=== PATIENT | male | born 1960 | race Caucasian/White ===

== ENCOUNTER 2017-12-28 16:27 | Inpatient (IN) | payer OTHER ==
[2017-12-28] MEDS: SOD CHLORIDE 0.9% 100 ML (16:37)
[2017-12-28] MEDS: IOHEXOL 350MG/ML 50 ML BTL (16:37)
[2017-12-28] MEDS: IOHEXOL 100 ML (16:37)
[2017-12-28] MEDS: ASPIRIN 81 MG TAB PO (16:59)
[2017-12-28] MEDS: ASPIRIN 300 MG SUPP PR (17:00)
[2017-12-28 17:07] LABS: ADD MAN DIFF? NO
[2017-12-28] MEDS: SOD CHLORIDE 0.9% 1,000 ML IV (17:11)
[2017-12-28 17:12] LABS: WHITE BLOOD COUNT 5.4 10^3/ul (4.8-10.8)
[2017-12-28 17:12] LABS: BASOPHILS % 0.4 % (0.0-2.0); EOSINOPHILS % 0.6 % (0.0-7.0); HEMATOCRIT 44.4 % (42.0-52.0); HEMOGLOBIN 15.3 g/dl (14.0-18.0); LYMPHOCYTES % 36.4 % (15.0-51.0); MEAN CORPUSCULAR HEMOGLOBIN 30.9 pg (29.0-33.0); MEAN CORPUSCULAR HGB CONC 34.5 g/dl (32.0-37.0); MEAN CORPUSCULAR VOLUME 89.7 fl (82.0-101.0); MEAN PLATELET VOLUME 10.8 fl (7.4-10.4); MONOCYTE # 0.6 10^3/ul (0.3-0.9); MONOCYTES % 10.5 % (0.0-11.0); NEUTROPHIL # 2.8 10^3/ul (1.6-7.5); NEUTROPHILS % 51.4 % (39.0-77.0); PLATELET COUNT 225 10^3/UL (140-415); RED BLOOD COUNT 4.95 10^6/ul (4.70-6.10); RED CELL DISTRIBUTION WIDTH 13.3 % (11.5-14.5)
[2017-12-28 17:35] LABS: HEMOGLOBIN A1C 5.6 % (0-5.9)
[2017-12-28 17:37] LABS: INR 1.07; PT RATIO 1.1
[2017-12-28 17:38] LABS: ALANINE AMINOTRANSFERASE 28 IU/L (13-69); ALBUMIN/GLOBULIN RATIO 1.11; ALKALINE PHOSPHATASE 67 IU/L (42-121); ANION GAP 21 (8-16); ASPARTATE AMINO TRANSFERASE 15 IU/L (15-46); BILIRUBIN,INDIRECT 0.4 mg/dl (0-1.1); BILIRUBIN,TOTAL 0.4 mg/dl (0.2-1.3); BLOOD UREA NITROGEN 21 mg/dl (7-20); CALCIUM 8.8 mg/dl (8.4-10.2); CARBON DIOXIDE 25 mmol/L (21-31); CHLORIDE 99 mmol/L (97-110); CHOL/HDL RATIO 4.3 RATIO; CHOLESTEROL 197 mg/dl (100-200); CREATININE 1.46 mg/dl (0.61-1.24); GLUCOSE 95 mg/dl (70-220); HDL CHOLESTEROL 45 mg/dl (28-71); LDL CHOLESTEROL,CALCULATED 119 mg/dl; PARTIAL THROMBOPLASTIN TIME 28.4 Sec (25.0-35.0); POTASSIUM 3.8 mmol/L (3.5-5.1); SODIUM 141 mmol/L (135-144); TOTAL PROTEIN 7.6 g/dl (6.1-8.1); TRIGLYCERIDES 165 mg/dl (0-149)
[2017-12-28 17:49] LABS: TROPONIN-I 0.013 ng/ml (0.000-0.120)
[2017-12-28] MEDS ORDERED: BISACODYL 10 MG SUPP PR (23:00)
[2017-12-28] MEDS ORDERED: DOCUSATE SODIUM 100 MG CAP PO (23:00)
[2017-12-28] MEDS ORDERED: ONDANSETRON 4 MG INJ IV (23:00)
[2017-12-28] MEDS ORDERED: ACETAMINOPHEN 325 MG TAB PO (23:00)
[2017-12-28] MEDS ORDERED: morphine 2 MG INJ IV (23:00)
[2017-12-28] MEDS ORDERED: MAGNESIUM HYDROXIDE 30ML CUP PO (23:00)
[2017-12-28] MEDS ORDERED: NACL 0.9% 3 ML SYG IV (23:00)
[2017-12-29] MEDS: ASPIRIN (EC) 81 MG TAB PO (08:47)
[2017-12-29] MEDS: NIFEdipine (XL) 30 MG TAB PO (08:47)
[2017-12-29] MEDS: LOSARTAN 50 MG TAB PO (08:47)
[2017-12-29] MEDS: FAMOTIDINE 20 MG TAB PO ×2 (08:47→20:27)
[2017-12-29] MEDS: CLOPIDOGREL 75 MG TAB PO (08:47)
[2017-12-29 08:58] LABS: ADD MAN DIFF? NO
[2017-12-29 09:09] LABS: BASOPHILS % 0.5 % (0.0-2.0); HEMATOCRIT 47.2 % (42.0-52.0); HEMOGLOBIN 16.2 g/dl (14.0-18.0); LYMPHOCYTES # 1.5 10^3/ul (0.8-2.9); MEAN CORPUSCULAR HEMOGLOBIN 30.9 pg (29.0-33.0); MEAN CORPUSCULAR HGB CONC 34.3 g/dl (32.0-37.0); MEAN CORPUSCULAR VOLUME 89.9 fl (82.0-101.0); MEAN PLATELET VOLUME 10.5 fl (7.4-10.4); MONOCYTE # 0.5 10^3/ul (0.3-0.9); MONOCYTES % 11.4 % (0.0-11.0); NEUTROPHIL # 1.9 10^3/ul (1.6-7.5); NEUTROPHILS % 48.8 % (39.0-77.0); PLATELET COUNT 219 10^3/UL (140-415); RED BLOOD COUNT 5.25 10^6/ul (4.70-6.10); RED CELL DISTRIBUTION WIDTH 13.4 % (11.5-14.5)
[2017-12-29 09:16] LABS: HEMOGLOBIN A1C 5.6 % (0-5.9)
[2017-12-29 09:36] LABS: ALANINE AMINOTRANSFERASE 30 IU/L (13-69); ALBUMIN 4.1 g/dl (3.3-4.9); ALKALINE PHOSPHATASE 85 IU/L (42-121); ANION GAP 17 (8-16); ASPARTATE AMINO TRANSFERASE 17 IU/L (15-46); BILIRUBIN,INDIRECT 0.7 mg/dl (0-1.1); BILIRUBIN,TOTAL 0.7 mg/dl (0.2-1.3); BLOOD UREA NITROGEN 19 mg/dl (7-20); CALCIUM 8.9 mg/dl (8.4-10.2); CARBON DIOXIDE 24 mmol/L (21-31); CHLORIDE 108 mmol/L (97-110); CHOL/HDL RATIO 4.6 RATIO; CHOLESTEROL 204 mg/dl (100-200); CREATININE 1.29 mg/dl (0.61-1.24); GLUCOSE 81 mg/dl (70-220); HDL CHOLESTEROL 44 mg/dl (28-71); LDL CHOLESTEROL,CALCULATED 136 mg/dl; MAGNESIUM 2.1 mg/dl (1.7-2.5); POTASSIUM 3.9 mmol/L (3.5-5.1); SODIUM 145 mmol/L (135-144); TOTAL PROTEIN 7.8 g/dl (6.1-8.1); TRIGLYCERIDES 119 mg/dl (0-149)
[2017-12-29] MEDS: ATORVASTATIN 40 MG TAB PO (20:27)
[2017-12-29] MEDS: ATENOLOL 100 MG TAB PO (20:28)
[2017-12-30] MEDS: ASPIRIN (EC) 81 MG TAB PO (08:07)
[2017-12-30] MEDS: LOSARTAN 50 MG TAB PO ×2 (08:07→21:03)
[2017-12-30] MEDS: NIFEdipine (XL) 30 MG TAB PO ×2 (08:07→12:53)
[2017-12-30] MEDS: FAMOTIDINE 20 MG TAB PO ×2 (08:07→21:02)
[2017-12-30] MEDS: CLOPIDOGREL 75 MG TAB PO (08:07)
[2017-12-30 09:32] LABS: ADD UMIC YES; UR ASCORBIC ACID NEGATIVE (NEGATIVE); UR BACTERIA FEW /HPF (NONE SEEN); UR BILIRUBIN (Dip) NEGATIVE (NEGATIVE); UR BLOOD (Dip) NEGATIVE (NEGATIVE); UR CLARITY CLEAR (CLEAR); UR COLOR YELLOW (YELLOW); UR GLUCOSE (Dip) NEGATIVE (NEGATIVE); UR KETONES (Dip) NEGATIVE (NEGATIVE); UR LEUKOCYTE ESTERASE (Dip) NEGATIVE Leu/ul (NEGATIVE); UR MUCUS MANY /HPF (NONE SEEN); UR NITRITE (Dip) NEGATIVE (NEGATIVE); UR RBC 1 /HPF (0-5); UR TOTAL PROTEIN (Dip) 2+ mg/dl (NEGATIVE); UR UROBILINOGEN (Dip) NEGATIVE (NEGATIVE); UR WBC 1 /HPF (0-5)
[2017-12-30 09:59] LABS: AMPHETAMINE/METHAMPHETAMINE NEGATIVE (NEGATIVE); BARBITURATES NEGATIVE (NEGATIVE); BENZODIAZEPINES NEGATIVE (NEGATIVE); CANNABINOIDS NEGATIVE (NEGATIVE); COCAINE NEGATIVE (NEGATIVE); OPIATES NEGATIVE (NEGATIVE)
[2017-12-30] MEDS: HYDROCHLOROTHIAZIDE 25 MG TAB PO (12:20)
[2017-12-30] MEDS: ATORVASTATIN 40 MG TAB PO (21:02)
[2017-12-30] MEDS: ATENOLOL 100 MG TAB PO (21:03)
[2017-12-31] MEDS: CLOPIDOGREL 75 MG TAB PO (08:12)
[2017-12-31] MEDS: FAMOTIDINE 20 MG TAB PO (08:12)
[2017-12-31] MEDS: NIFEdipine (XL) 60 MG TAB PO (08:13)
[2017-12-31] MEDS: HYDROCHLOROTHIAZIDE 25 MG TAB PO (08:13)
[2017-12-31] MEDS: LOSARTAN 50 MG TAB PO (08:13)
[2017-12-31] MEDS: hydrALAzine 20 MG INJ IV (11:42)
[2018-01-02] MEDS ORDERED: ERGOCALCIFEROL 50,000 UNIT CAP PO (09:00)
== END 2017-12-31 13:00 | disposition home health service (06) | DRG 65 ==
LOC: E/R 16:27 → TEL 18:17
DX: I63.211 Cerebral infarction due to unspecified occlusion or stenosis of right vertebral artery (principal); G81.91 Hemiplegia, unspecified affecting right dominant side; I10 Essential (primary) hypertension; R29.704 NIHSS score 4; E78.5 Hyperlipidemia, unspecified; Z86.73 Personal history of transient ischemic attack (TIA), and cerebral infarction without residual deficits
CPT/HCPCS: 36415; 70450; 70496; 70498; 70551; 71045; 80053; 80061; 80307; 81001; 82962; 83036; 83735; 84484; 85025; 85610; 85730; 86850; 86900; 86901; 92610; 93005; 93306; 97161; 97165; 99291-25